=== PATIENT | female | born 1945 | race Caucasian/White ===

== ENCOUNTER 2020-12-06 10:27 | Outpatient (CLI) | payer MEDICARE, OTHER | END 2020-12-06 23:59 | disposition home or self-care (01) | LOC: RAD 10:27 | PROVIDERS: ATTEND Psychiatry & Neurology Neurology | DX: M48.54XA Collapsed vertebra, not elsewhere classified, thoracic region, initial encounter for fracture (principal); M41.84 Other forms of scoliosis, thoracic region; M43.8X4 Other specified deforming dorsopathies, thoracic region; M79.89 Other specified soft tissue disorders | CPT/HCPCS: 77075 ==

== ENCOUNTER 2022-11-20 08:46 | Emergency (ER) | payer MEDICARE, OTHER ==
[~2022-11-20] VITALS: Ht 170.2 cm; Wt 45.0 kg
--- NOTE | 2022-11-20 09:41 | NUR ---
PT BACK FROM CT
[2022-11-20] MEDS ORDERED: LIDOcaine 1% W/epiNEPHrine 1:100,000 20ml vial SQ ONE (10:25)
[2022-11-20] MEDS ORDERED: ibuprofen tablet 400 MG TABLET PO ONE (11:25)
[2022-11-20] MEDS ORDERED: acetaminophen 325mg tablet PO ONE (11:25)
[2022-11-20 12:21] VITALS: BP 135/76
== END 2022-11-20 12:24 | disposition home or self-care (01) ==
LOC: ER 08:47
DX: S01.311A Laceration without foreign body of right ear, initial encounter (principal); S40.011A Contusion of right shoulder, initial encounter; Z88.0 Allergy status to penicillin; W01.0XXA Fall on same level from slipping, tripping and stumbling without subsequent striking against object, initial encounter; Y93.89 Activity, other specified; Y92.89 Other specified places as the place of occurrence of the external cause; Y99.8 Other external cause status
CPT/HCPCS: 12011; 70450; 73030; 99284; A4565; A6449

== ENCOUNTER 2023-02-12 18:16 | Emergency (ER) | payer MEDICARE, OTHER ==
[~2023-02-12] VITALS: Ht 167.6 cm; Wt 42.7 kg
[2023-02-12 18:17] VITALS: BP 141/78; PULSE 89; RESP 16; TEMP 98; O2SAT 93
--- NOTE | 2023-02-12 18:33 | NUR ---
THIS RN ATTEMPTED TO HELP PT ONTO TOILET TO PROVIDE URINE SAMPLE. PT BECAME FRIGHTENED AND WAS UNABLE TO SIT ON TOILET
[2023-02-12 19:48] LABS: BASOPHILS % (AUTO) 0.8 % (0-1); EOSINOPHILS % (AUTO) 0.2 % (0-6); HEMATOCRIT 42.3 % (35.0-45.0); HEMOGLOBIN 14.2 g/dl (12.0-16.0); LYMPHOCYTES # (AUTO) 1.7 X10'3 (1.1-4.8); LYMPHOCYTES % (AUTO) 31.6 % (21-51); MEAN CORPUSCULAR HEMOGLOBIN 31.7 PG (27.0-31.0); MEAN CORPUSCULAR HGB CONC 33.5 g/dL (33.0-36.5); MEAN CORPUSCULAR VOLUME 94.7 FL (78-98); MEAN PLATELET VOLUME 7.8 FL (7.4-10.4); MONOCYTES # (AUTO) 0.6 X10'3 (0-0.9); MONOCYTES % (AUTO) 10.3 % (2-12); NEUTROPHILS % (AUTO) 57.1 % (42-75); PLATELET COUNT 386 X10'3 (140-440); RED BLOOD COUNT 4.47 X10'6 (4.20-5.60); RED CELL DISTRIBUTION WIDTH 13.5 % (11.5-14.5); WHITE BLOOD COUNT 5.3 X10'3 (4.5-11.0)
[2023-02-12 20:09] LABS: ALANINE AMINOTRANSFERASE 16 U/L (12-78); ALBUMIN 3.7 G/DL (3.4-5.0); ALKALINE PHOSPHATASE 80 IU/L (46-116); ANION GAP 11 (8-16); ASPARTATE AMINO TRANSFERASE 19 U/L (10-37); BILIRUBIN,TOTAL 0.4 MG/DL (0.1-1.0); BLOOD UREA NITROGEN 22 MG/DL (7-18); BUN/CREATININE RATIO 35.5 (10.0-20.0); CALCIUM 9.6 MG/DL (8.5-10.1); CHLORIDE 106 MMOL/L (99-107); CREATININE 0.62 MG/DL (0.40-0.90); GLUCOSE 105 MG/DL (70-104); POTASSIUM 3.5 MMOL/L (3.5-5.1); SODIUM 140 MMOL/L (135-145); TOTAL CARBON DIOXIDE 23.4 MMOL/L (24-32); TOTAL PROTEIN 7.5 G/DL (6.4-8.2); eCRCL 50 ML/MIN; eGFR > 90 ML/MIN
[2023-02-13] MEDS ORDERED: ALEN70TA80 (22:39)
[2023-02-13] MEDS ORDERED: ROPI0.5T37 PO (22:39)
[2023-02-13] MEDS ORDERED: OLAN2.5T28 PO (22:39)
[2023-02-13] MEDS ORDERED: CARB1TAB36 PO (22:39)
[2023-02-13] MEDS ORDERED: SIMV-45 PO (22:39)
[2023-02-13] MEDS ORDERED: GABA-530 (23:22)
== END 2023-02-13 00:19 | disposition left against medical advice (07) ==
LOC: ER 18:17
DX: R30.9 Painful micturition, unspecified (principal); Z53.21 Procedure and treatment not carried out due to patient leaving prior to being seen by health care provider
CPT/HCPCS: 36415; 80053; 85025; 99281

== ENCOUNTER 2023-02-13 10:45 | Inpatient (IN) | payer MEDICARE, OTHER ==
[~2023-02-13] VITALS: Ht 170.2 cm; Wt 42.0 kg
[2023-02-13 14:18] LABS: BILIRUBIN,URINE NEGATIVE (Neg); CLARITY,URINE SLIGHTLY CLOUDY (Clear); COLOR,URINE YELLOW (Yellow); GLUCOSE, URINE NEGATIVE (Neg); KETONES,URINE 40 mg/dl (Neg); LEUKOCYTE ESTERASE ,URINE TRACE (Neg); NITRITES, URINE POSITIVE (Neg); OCCULT BLOOD,URINE MODERATE (Neg); PH,URINE 5.5 (4.8-8.0); PROTEIN,URINE NEGATIVE (Neg); UROBILINOGEN,URINE 0.2 E.U/dL (0.2-1.0)
[2023-02-13 14:24] LABS: UA COLLECTION TYPE CLN CATCH MIDSTREAM
[2023-02-13 14:25] LABS: BACTERIA,URINE 4+ /HPF (Neg); SQUAMOUS EPITHELIAL CELL,UR FEW /LPF (FEW)
[2023-02-13 14:26] LABS: WBC,URINE TNTC /HPF (0-4)
[2023-02-13 14:27] LABS: RBC,URINE 0-2 /HPF (0-2)
[2023-02-13] MEDS ORDERED: CefTRIAXone 2gm/D5W 50ml BAG 50 ML IV ONE (16:50)
[2023-02-13] MEDS ORDERED: normal saline 1000ML IV soln IV ONE (16:50)
[2023-02-13 17:38] LABS: BASOPHILS % (AUTO) 0.6 % (0-1); EOSINOPHILS % (AUTO) 0.2 % (0-6); HEMATOCRIT 45.1 % (35.0-45.0); HEMOGLOBIN 15.3 g/dl (12.0-16.0); LYMPHOCYTES # (AUTO) 1.4 X10'3 (1.1-4.8); LYMPHOCYTES % (AUTO) 30.5 % (21-51); MEAN CORPUSCULAR HEMOGLOBIN 32.2 PG (27.0-31.0); MEAN CORPUSCULAR HGB CONC 33.9 g/dL (33.0-36.5); MEAN PLATELET VOLUME 7.8 FL (7.4-10.4); MONOCYTES # (AUTO) 0.4 X10'3 (0-0.9); MONOCYTES % (AUTO) 8.9 % (2-12); NEUTROPHILS # (AUTO) 2.7 X10'3 (1.8-7.7); NEUTROPHILS % (AUTO) 59.8 % (42-75); PLATELET COUNT 422 X10'3 (140-440); RED BLOOD COUNT 4.74 X10'6 (4.20-5.60); RED CELL DISTRIBUTION WIDTH 13.5 % (11.5-14.5); WHITE BLOOD COUNT 4.5 X10'3 (4.5-11.0)
[2023-02-13 18:05] LABS: ALANINE AMINOTRANSFERASE 21 U/L (12-78); ALBUMIN/GLOBULIN RATIO 0.9 (1.1-1.5); ALKALINE PHOSPHATASE 84 IU/L (46-116); ANION GAP 7 (8-16); ASPARTATE AMINO TRANSFERASE 16 U/L (10-37); BILIRUBIN,TOTAL 0.5 MG/DL (0.1-1.0); BLOOD UREA NITROGEN 23 MG/DL (7-18); BUN/CREATININE RATIO 27.7 (10.0-20.0); CALCIUM 9.9 MG/DL (8.5-10.1); CHLORIDE 103 MMOL/L (99-107); CREATININE 0.83 MG/DL (0.40-0.90); GLUCOSE 152 MG/DL (70-104); MAGNESIUM 2.4 MG/DL (1.5-2.4); POTASSIUM 3.4 MMOL/L (3.5-5.1); SODIUM 139 MMOL/L (135-145); TOTAL CARBON DIOXIDE 29.1 MMOL/L (24-32); TOTAL PROTEIN 8.3 G/DL (6.4-8.2); eCRCL 37 ML/MIN; eGFR 66 ML/MIN
[2023-02-13] MEDS ORDERED: ondansetron/PF 4mg/2ml inj IV PRN (19:30)
[2023-02-13] MEDS ORDERED: magnesium Cl slow-release 64mg tablet PO PRN (19:30)
[2023-02-13] MEDS ORDERED: potassium Cl 40MEQ/1/2NS 520ml 520 ML IV PRN (19:30)
[2023-02-13] MEDS ORDERED: potassium Cl 20 mEq SR tablet PO PRN (19:30)
[2023-02-13] MEDS ORDERED: magnesium 4gm in 100ml NS 100 ML IV PRN (19:30)
[2023-02-13] MEDS ORDERED: magnesium hydroxide 30ml (MOM) UD suspension PO PRN (19:30)
[2023-02-13] MEDS ORDERED: mag hydrox/Alum hydrox/simeth 30ml oral suspension PO PRN (19:30)
[2023-02-13] MEDS ORDERED: magnesium 2GM in 50ml NS 50 ML IV PRN (19:30)
[2023-02-13] MEDS: docusate sod 100mg capsule PO SCH (20:00)
[2023-02-13] MEDS: K and/or MAG REPLACEMENT MC SCH (20:00)
[2023-02-13] MEDS: potassium Cl 20 mEq SR tablet PO PRN (20:52)
[2023-02-13] MEDS: potassium Cl 20mEq in NS 1,000 ML IV SCH (21:50)
[2023-02-13] MEDS: heparin, porcine 5000 units/ml vial SQ SCH (22:04)
[2023-02-13] MEDS: acetaminophen 325mg tablet PO PRN (22:16)
[2023-02-13] MEDS ORDERED: ROPI0.5T37 PO (22:39)
[2023-02-13] MEDS ORDERED: OLAN2.5T28 PO (22:39)
[2023-02-13] MEDS ORDERED: SIMV-45 PO (22:39)
[2023-02-13] MEDS ORDERED: ALEN70TA80 (22:39)
[2023-02-13] MEDS ORDERED: CARB1TAB36 PO (22:39)
[2023-02-13] MEDS ORDERED: HYDROcodone/acetaminophen 5mg/325mg tablet PO ONE (23:00)
--- NOTE | 2023-02-13 23:06 | NUR ---
Note abraham in EDM - 02/13/23 at 2320 by [email or web address] This RN took over care of pt in ED. Pt son stated she no longer takes any medications except for ropinirole and CBD at home. Pt stated she takes simvastatin, alendronate, baby aspirin, and olanzipine. Pt appears to be agitated, anxious, restless and in pain to this RN. Notified MD Keyes re medication changes/discrepancies. offered Compton and pt has declined, she now agrees to take gabapentin as previously prescribed.
--- NOTE | 2023-02-13 23:20 | NUR ---
Pt son states medications were stopped 1 week ago.
[2023-02-13] MEDS ORDERED: GABA-530 (23:22)
[2023-02-14] MEDS ORDERED: gabapentin 400mg capsule PO ONE (04:15)
[2023-02-14] MEDS ORDERED: gabapentin 100mg capsule PO ONE (04:35)
[2023-02-14] MEDS: potassium Cl 20mEq in NS 1,000 ML IV SCH ×2 (06:27→15:46)
[2023-02-14] MEDS: CefTRIAXone/D5W-Rocephin 1gm 50 ML IV SCH (07:32)
[2023-02-14] MEDS: docusate sod 100mg capsule PO SCH ×2 (07:32→21:44)
[2023-02-14] MEDS: heparin, porcine 5000 units/ml vial SQ SCH ×2 (07:34→21:45)
[2023-02-14] MEDS: K and/or MAG REPLACEMENT MC SCH ×2 (08:00→20:00)
[2023-02-14 08:08] LABS: BASOPHILS % (AUTO) 0.5 % (0-1); EOSINOPHILS % (AUTO) 0.1 % (0-6); HEMATOCRIT 39.6 % (35.0-45.0); HEMOGLOBIN 13.1 g/dl (12.0-16.0); LYMPHOCYTES # (AUTO) 1.5 X10'3 (1.1-4.8); LYMPHOCYTES % (AUTO) 24.2 % (21-51); MEAN CORPUSCULAR HEMOGLOBIN 31.8 PG (27.0-31.0); MEAN CORPUSCULAR VOLUME 96.3 FL (78-98); MEAN PLATELET VOLUME 8.1 FL (7.4-10.4); MONOCYTES # (AUTO) 0.7 X10'3 (0-0.9); MONOCYTES % (AUTO) 11.1 % (2-12); NEUTROPHILS # (AUTO) 4.1 X10'3 (1.8-7.7); NEUTROPHILS % (AUTO) 64.1 % (42-75); PLATELET COUNT 296 X10'3 (140-440); RED BLOOD COUNT 4.11 X10'6 (4.20-5.60); RED CELL DISTRIBUTION WIDTH 13.8 % (11.5-14.5); WHITE BLOOD COUNT 6.3 X10'3 (4.5-11.0)
[2023-02-14 08:26] LABS: ALANINE AMINOTRANSFERASE 18 U/L (12-78); ALBUMIN 3.2 G/DL (3.4-5.0); ALKALINE PHOSPHATASE 68 IU/L (46-116); ANION GAP 9 (8-16); ASPARTATE AMINO TRANSFERASE 44 U/L (10-37); BILIRUBIN,TOTAL 0.3 MG/DL (0.1-1.0); BLOOD UREA NITROGEN 26 MG/DL (7-18); CALCIUM 8.8 MG/DL (8.5-10.1); CHLORIDE 110 MMOL/L (99-107); CREATININE 0.93 MG/DL (0.40-0.90); GLUCOSE 130 MG/DL (70-104); MAGNESIUM 2.1 MG/DL (1.5-2.4); POTASSIUM 4.5 MMOL/L (3.5-5.1); SODIUM 138 MMOL/L (135-145); THYROID STIMULATING HORMONE 2.29 ulU/ml (0.34-4.50); TOTAL CARBON DIOXIDE 19.3 MMOL/L (24-32); TOTAL PROTEIN 6.5 G/DL (6.4-8.2); eCRCL 33 ML/MIN; eGFR 58 ML/MIN
[2023-02-14 08:31] LABS: URINE AMPHETAMINE SCREEN NEGATIVE (Neg); URINE BARBITUATE SCREEN NEGATIVE (Neg); URINE BENZODIAZEPINES SCREEN NEGATIVE (Neg); URINE CANNABINOID SCREEN POSITIVE (Neg); URINE COCAINE SCREEN NEGATIVE (Neg); URINE METHADONE SCREEN NEGATIVE (Neg); URINE OPIATE SCREEN NEGATIVE (Neg); URINE PHENCYCLIDINE SCREEN NEGATIVE (Neg)
--- NOTE | 2023-02-14 09:50 | NUR ---
PT HAD BEEN INCONTINENT OF URINE, LINEN CHANGE PROVIDED, PT PLACED IN CLEAN BRIEF WITH PUREWICK.
[2023-02-14] MEDS: acetaminophen 325mg tablet PO PRN ×2 (09:56→15:48)
[2023-02-14] MEDS: dextrose 5%-water 1,000 ML IV SCH (17:07)
[2023-02-14 22:00] VITALS: BP 121/61; PULSE 82; RESP 20; TEMP 97.6; O2SAT 94
[2023-02-14 23:25] VITALS: RESP 16; O2SAT 91
[2023-02-15 02:00] VITALS: BP 115/48; PULSE 84; RESP 20; TEMP 97; O2SAT 94
[2023-02-15] MEDS: dextrose 5%-water 1,000 ML IV SCH ×2 (02:40→13:25)
[2023-02-15] MEDS: acetaminophen 325mg tablet PO PRN (03:49)
[2023-02-15 06:06] VITALS: BP 136/73; PULSE 85; RESP 18; TEMP 98.2; O2SAT 92
[2023-02-15] MEDS: K and/or MAG REPLACEMENT MC SCH ×2 (07:04→20:00)
[2023-02-15 07:56] LABS: BASOPHILS % (AUTO) 0.4 % (0-1); EOSINOPHILS % (AUTO) 0.3 % (0-6); HEMATOCRIT 37.3 % (35.0-45.0); HEMOGLOBIN 12.6 g/dl (12.0-16.0); LYMPHOCYTES # (AUTO) 1.8 X10'3 (1.1-4.8); LYMPHOCYTES % (AUTO) 23.8 % (21-51); MEAN CORPUSCULAR HEMOGLOBIN 32.1 PG (27.0-31.0); MEAN CORPUSCULAR HGB CONC 33.7 g/dL (33.0-36.5); MEAN CORPUSCULAR VOLUME 95.3 FL (78-98); MEAN PLATELET VOLUME 8.2 FL (7.4-10.4); MONOCYTES # (AUTO) 0.6 X10'3 (0-0.9); NEUTROPHILS # (AUTO) 5.1 X10'3 (1.8-7.7); NEUTROPHILS % (AUTO) 67.5 % (42-75); PLATELET COUNT 341 X10'3 (140-440); RED BLOOD COUNT 3.92 X10'6 (4.20-5.60); RED CELL DISTRIBUTION WIDTH 13.5 % (11.5-14.5); WHITE BLOOD COUNT 7.6 X10'3 (4.5-11.0)
[2023-02-15 08:11] LABS: ALANINE AMINOTRANSFERASE 24 U/L (12-78); ALBUMIN 3.3 G/DL (3.4-5.0); ALKALINE PHOSPHATASE 69 IU/L (46-116); ANION GAP 8 (8-16); ASPARTATE AMINO TRANSFERASE 46 U/L (10-37); BILIRUBIN,TOTAL 0.5 MG/DL (0.1-1.0); BLOOD UREA NITROGEN 16 MG/DL (7-18); BUN/CREATININE RATIO 25.4 (10.0-20.0); CALCIUM 9.3 MG/DL (8.5-10.1); CHLORIDE 108 MMOL/L (99-107); CREATININE 0.63 MG/DL (0.40-0.90); GLUCOSE 102 MG/DL (70-104); MAGNESIUM 1.9 MG/DL (1.5-2.4); POTASSIUM 3.7 MMOL/L (3.5-5.1); SODIUM 138 MMOL/L (135-145); TOTAL CARBON DIOXIDE 21.6 MMOL/L (24-32); TOTAL PROTEIN 6.5 G/DL (6.4-8.2); eCRCL 49 ML/MIN; eGFR > 90 ML/MIN
[2023-02-15 08:14] VITALS: RESP 17; O2SAT 92
[2023-02-15] MEDS: CefTRIAXone/D5W-Rocephin 1gm 50 ML IV SCH (08:26)
[2023-02-15] MEDS: heparin, porcine 5000 units/ml vial SQ SCH ×2 (08:26→20:23)
[2023-02-15] MEDS: docusate sod 100mg capsule PO SCH (08:26)
[2023-02-15 15:15] VITALS: BP 138/67; PULSE 82; RESP 14; TEMP 98.5; O2SAT 96
[2023-02-15 16:53] LABS: A/G RATIO 1.1 (0.7-1.7); ALPHA-1-GLOBULIN 0.1 g/dL (0.0-0.4); ALPHA-2-GLOBULIN 0.6 g/dL (0.4-1.0); GLOBULIN, TOTAL 2.7 g/dL (2.2-3.9); M-SPIKE 0.7 g/dL (Not Observed); PROTEIN, TOTAL, SERUM 5.7 g/dL (6.0-8.5)
[2023-02-15] MEDS: NUT.TX.IMPAIRED DIGEST FXN (Ensure Clear) 237 ML PO SCH (18:00)
--- NOTE | 2023-02-15 18:35 | NUR ---
Nutrition consult: Pt admit for metabolic encephalopathy, UTI, Sepsis, malnutrition, and failure to thrive per EMR. Pt and pt's son present at bedside during time of visit. Pt was eating dinner and states her appetite is starting to get better. Pt's son reports pt's UBW is 125 pounds and last weighed that about 6-8 months ago however states since his father's passing pt has been eating a lot less and has dropped down to 96 pounds. Current scaled wt this admit of 42kg (92 pounds) indicate further weight loss has occurred. Pt presents with a low BMI of 14.5 and based on son's report pt has 33 lost pounds (26% wt loss) in the last 6 months. Pt physically had visible signs of muscle loss to temporal region and clavicle region as well as some fat wasting to orbital region. Pt meet a minimum of two malnutrition criteria at this time; MD notified. Pt is currently on a heart healthy diet with average PO intake of 25% x2 meals not meeting estimated needs. Pt agreeable to drink chocolate Ensure thus Recommend Ensure Enlive TIDWM to help better meet estimated needs given malnourished status.; MD notified. Pt also presents with a low sultana score of 12 though skin appears to be intact per RN physical assessment and not resulting in wound consult at this time. Will continue to monitor and make recommendations as appropriate. Recommendations: 1.liberalize diet to regular given age and if poor intake persist 2.Ensure Enlive TIDWM; pending physician approval in EMR 3.Routine bowel care 4.Weekly scaled wts Addendum: 02/15/23 at [address] Amended: Links added.
[2023-02-15] MEDS: calcium carbonate 500mg tablet PO SCH (20:02)
[2023-02-15 22:00] VITALS: BP 118/66; PULSE 79; RESP 16; TEMP 97; O2SAT 96
[2023-02-16] MEDS: dextrose 5%-water 1,000 ML IV SCH (01:20)
[2023-02-16 02:00] VITALS: BP 103/48; PULSE 77; RESP 16; TEMP 97.6; O2SAT 94
[2023-02-16 06:06] VITALS: BP 121/64; PULSE 82; RESP 14; TEMP 97.8; O2SAT 94
--- NOTE | 2023-02-16 06:26 | NUR ---
Patient report given, questions answered & plan of care reviewed with MAGO Marie
[2023-02-16] MEDS: K and/or MAG REPLACEMENT MC SCH (06:43)
[2023-02-16 06:44] LABS: BASOPHILS # (AUTO) 0.1 X10'3 (0-0.2); BASOPHILS % (AUTO) 0.8 % (0-1); EOSINOPHILS # (AUTO) 0.1 X10'3 (0-0.9); EOSINOPHILS % (AUTO) 1.5 % (0-6); HEMATOCRIT 40.7 % (35.0-45.0); HEMOGLOBIN 13.9 g/dl (12.0-16.0); LYMPHOCYTES # (AUTO) 1.6 X10'3 (1.1-4.8); LYMPHOCYTES % (AUTO) 26.3 % (21-51); MEAN CORPUSCULAR HEMOGLOBIN 32.5 PG (27.0-31.0); MEAN CORPUSCULAR HGB CONC 34.2 g/dL (33.0-36.5); MEAN CORPUSCULAR VOLUME 94.9 FL (78-98); MEAN PLATELET VOLUME 7.8 FL (7.4-10.4); MONOCYTES # (AUTO) 0.9 X10'3 (0-0.9); MONOCYTES % (AUTO) 13.7 % (2-12); NEUTROPHILS # (AUTO) 3.6 X10'3 (1.8-7.7); NEUTROPHILS % (AUTO) 57.7 % (42-75); PLATELET COUNT 333 X10'3 (140-440); RED BLOOD COUNT 4.29 X10'6 (4.20-5.60); RED CELL DISTRIBUTION WIDTH 13.3 % (11.5-14.5); WHITE BLOOD COUNT 6.2 X10'3 (4.5-11.0)
[2023-02-16 07:09] LABS: ANION GAP 7 (8-16); BLOOD UREA NITROGEN 6 MG/DL (7-18); BUN/CREATININE RATIO 9.8 (10.0-20.0); CHLORIDE 106 MMOL/L (99-107); CREATININE 0.61 MG/DL (0.40-0.90); GLUCOSE 103 MG/DL (70-104); POTASSIUM 3.3 MMOL/L (3.5-5.1); SODIUM 139 MMOL/L (135-145); TOTAL CARBON DIOXIDE 26.1 MMOL/L (24-32)
[2023-02-16 07:10] LABS: ALANINE AMINOTRANSFERASE 26 U/L (12-78); ALBUMIN 3.1 G/DL (3.4-5.0); ALBUMIN/GLOBULIN RATIO 0.9 (1.1-1.5); ALKALINE PHOSPHATASE 73 IU/L (46-116); ASPARTATE AMINO TRANSFERASE 29 U/L (10-37); BILIRUBIN,TOTAL 0.5 MG/DL (0.1-1.0); CALCIUM 9.6 MG/DL (8.5-10.1); MAGNESIUM 2.1 MG/DL (1.5-2.4); TOTAL PROTEIN 6.5 G/DL (6.4-8.2); eCRCL 50 ML/MIN; eGFR > 90 ML/MIN
[2023-02-16] MEDS ORDERED: cholecalciferol (vitamin D3) 1,000 unit (25mcg) tablet PO SCH (08:00)
[2023-02-16] MEDS: NUT.TX.IMPAIRED DIGEST FXN (Ensure Clear) 237 ML PO SCH ×2 (08:00→13:00)
[2023-02-16] MEDS: potassium Cl 20 mEq SR tablet PO PRN ×2 (08:35→12:32)
[2023-02-16] MEDS: calcium carbonate 500mg tablet PO SCH (08:35)
[2023-02-16] MEDS: lactose-reduced food (Ensure Enlive) - 237ml bottle PO SCH ×2 (08:36→13:05)
[2023-02-16] MEDS: heparin, porcine 5000 units/ml vial SQ SCH (08:36)
[2023-02-16 11:11] VITALS: BP 95/58; PULSE 63; RESP 16; TEMP 97.7; O2SAT 99
[2023-02-16] MEDS ORDERED: CHOL100046 PO (12:53)
[2023-02-16] MEDS ORDERED: LACT-237 PO (12:53)
[2023-02-16] MEDS ORDERED: [UNRECOGNIZED DRUG - CODE] PO (12:53)
[2023-02-16] MEDS ORDERED: CALC-801 PO (12:53)
--- NOTE | 2023-02-16 13:40 | NUR ---
PRESSURE ULCER EDUCATION: DEFINITION: A pressure ulcer is an area of skin that breaks down when you stay in one position too long. The constant pressure against the skin reduces the blood flow to that area and the affected tissue dies. CAUSES: "Being bedridden or in a wheelchair "Fragile skin "Having a chronic condition, such as diabetes or vascular disease "Inability to move certain parts of your body without assistance "Older age "Incontinence of urine or stool SYMPTOMS: "A reddened area that DOES NOT turn white when pressed on - this can be the beginning of a pressure ulcer "A blister, deep sore or a crater - these can be advanced pressure ulcers FIRST AID: "Relieve the pressure on this area "Keep the area clean and dry "Call your primary doctor if you see any of the above symptoms "DO NOT massage the area "DO NOT use a donut shaped or ring shaped pillow- these actually interfere with the blood flow and cause complications PREVENTION: "Check for pressure ulcers everyday "Change position at least every two hours to relieve pressure "Use items that help relieve pressure- pillows, sheepskin, foam padding, and powders. "Keep skin clean and dry "Eat healthy well balanced meals "Exercise daily IF YOU SEE ANY OF THESE SYMPTOMS WHILE IN THE HOSPITAL - TELL YOUR NURSE IMMEDIATELY. IF YOU SEE ANY OF THESE SYMPTOMS WHILE AT HOME OR HAVE ANY QUESTIONS OR CONCERNS ABOUT PRESSURE ULCERS - CALL YOUR PRIMARY DOCTOR IMMEDIATELY. Addendum: 02/16/23 at 1341 by Ray Guadarrama RN Amended: Links added.
[2023-02-16] MEDS ORDERED: CEFD300C3 PO (20:04)
== END 2023-02-16 14:29 | disposition home health service (06) | DRG 871 ==
LOC: ER 10:45 → ED HOLD 19:34 → PCU 3S 02-14 22:40
PROVIDERS: ADMIT Internal Medicine; ATTEND Internal Medicine
DX: A41.9 Sepsis, unspecified organism (principal); G93.41 Metabolic encephalopathy; E46 Unspecified protein-calorie malnutrition; Z68.1 Body mass index [BMI] 19.9 or less, adult; R64 Cachexia; N30.00 Acute cystitis without hematuria; R62.7 Adult failure to thrive; F32.A Depression, unspecified; E88.09 Other disorders of plasma-protein metabolism, not elsewhere classified; G89.29 Other chronic pain; M81.0 Age-related osteoporosis without current pathological fracture; I95.9 Hypotension, unspecified; Z87.891 Personal history of nicotine dependence; Z88.0 Allergy status to penicillin; Z79.1 Long term (current) use of non-steroidal anti-inflammatories (NSAID)
CPT/HCPCS: 36415; 71045; 80053; 80305; 81001; 83605; 83735; 83970; 84145; 84155; 84165; 84443; 85025; 87040; 87077; 87081; 87088; 87186; 93005; 97116; 97161; 97530; 99281; 99285; A4620; A6258; G0378; J0696; J1644; J2405; J3480; J7030; J7070